=== PATIENT | male | born 1960 | race Caucasian/White ===

== ENCOUNTER 2020-03-03 23:02 | Emergency (ER) | payer OTHER, BC ==
[~2020-03-03] VITALS: Ht 177.8 cm; Wt 83.9 kg
[2020-03-04 01:09] VITALS: BP 125/89
== END 2020-03-04 01:10 | disposition home or self-care (01) ==
LOC: ER 23:02
DX: S01.81XA Laceration without foreign body of other part of head, initial encounter (principal); F17.210 Nicotine dependence, cigarettes, uncomplicated; W22.01XA Walked into wall, initial encounter; Y93.89 Activity, other specified; Y92.89 Other specified places as the place of occurrence of the external cause; Y99.8 Other external cause status

== ENCOUNTER → 2021-07-30 | Outpatient (CLI) | payer OTHER, BC ==
[~2021-07-30] MED LIST: ASA81BEC PO; CYANOCOBAL1000 MCG/1 IM; DAILY VITE1 EAC1 PO; LEVOTHYROXINE50 MC1 PO; OSTEO BI-FLEX1 EAC1 PO; VITAMIN C1000 MG PO
== END ==
LOC: LAB 07:25
PROVIDERS: ATTEND Student in an Organized Health Care Education/Training Program
DX: Z01.812 Encounter for preprocedural laboratory examination (principal); Z20.822 Contact with and (suspected) exposure to COVID-19

== ENCOUNTER → 2021-08-01 | Outpatient (CLI) | payer OTHER, BC ==
[~2021-08-01] VITALS: Ht 177.8 cm; Wt 83.9 kg
--- NOTE | 2021-08-02 16:41 | P ---
[facility] [place] [address] PROCEDURE REPORT Name: GABBIE ZHANG Room #: REG Rafiq Enriquez#: [id number] Admission: 08/01/21 Attend Phys: Stephen Diaz Discharge: Date of : 62 Report #: [id number] THIS REPORT FOR: cc: Dave Swartz MD, Neal A. MD McElhinney, Christian C. MD ~ cc: Dave Swartz MD DATE OF SERVICE: 08/01/2021 PROCEDURE PERFORMED: Colonoscopy with biopsies. HISTORY OF PRESENT ILLNESS: The patient is a 61-year-old male with a history of colon polyps, last colonoscopy 5 years ago. He denies any symptoms at this time. No family history of colon cancer. DESCRIPTION OF PROCEDURE: The risks and benefits of the procedure were explained to the patient, those risks including but not limited to bleeding, perforation and the risk of sedation. He understood these risks and gave informed consent. Sedation was given using propofol per anesthesia. Next, a digital rectal exam was initially performed, which was normal. Next, using a standard Olympus colonoscope, the scope was placed in the patient's anus and advanced under direct vision to the cecum. The overall prep was good. In the cecum, there were two 3-4 mm sessile polyps, both removed with cold forceps, otherwise normal. The ileocecal valve was normal. The ascending, transverse and descending colon were normal. A few small scattered diverticula were noted in the sigmoid colon. No evidence of inflammation, otherwise normal. The rectal mucosa was normal. On retroflexion, no abnormalities were noted. The scope was then withdrawn and the procedure terminated. The patient tolerated the procedure well. IMPRESSION: 1. Small colonic polyps. 2. Sigmoid diverticulosis. 3. Otherwise, normal colonoscopy. RECOMMENDATIONS: 1. Await biopsy results. 2. If polyps are hyperplastic, repeat in 10 years; if adenomatous polyps, repeat in [address] [address] PROCEDURE REPORT Name: GABBIE ZHANG Room #: REG Rafiq Enriquez#: [id number] Admission: 08/01/21 Attend Phys: Stephen Diaz Discharge: Date of : 62 Report #: [id number] Thank you for allowing me to participate in his care. <ELECTRONICALLY SIGNED> By: Stephen Ryan MD 08/02/21 1641 1110 02 Stephen Ryan MD /nt
--- NOTE | 2021-08-06 12:06 | PATH ---
[facility] [place] [place] [address] [place] [address] PATHOLOGY RPT PROCEDURE Name: GABBIE ZHANG Room #: REG [facility] Natacha.#: [id number] Admission: 08/01/21 Date of : 62 Discharge: Report #: [id number] Path Case #: [id number] [facility] Accession Number: [id number] . 01 Material submitted: . cecum - CECAL POLYP . 01 Clinical history: . COLONOSCOPY HX OF POLYPS . 02 Diagnosis: Polyp, cecal polyp, endoscopic biopsy: - Tubular adenoma. - Negative for high grade dysplasia. . (IUV:mml; 08/03/2021) [facility] 08/03/2021 1256 Local . 02 Electronically signed: . Ximena Chavez MD, Pathologist NPI- [id number] . 01 Gross description: . The specimen is received in formalin, labeled "Britni, Gabbie, cecal polyp". Received are 5 segments of pale brown tissue ranging in size from 0.3 to 0.4 cm in maximum dimensions. The specimen is submitted entirely in cassette A1.([facility]; 08/02/2021) [facility] [place]/[facility] [place] 08/02/2021 1545 Local . 02 Pathologist provided ICD-10: D12.0 . 02 CPT . 528707 Specimen Comment: A courtesy copy of this report has been sent to [phone], [phone] Specimen Comment: [id number] Specimen Comment: Report sent to / DR BROWNLEE Specimen Comment: A duplicate report has been generated due to demographic updates. Performed at: 01 [place] [id number] [id number] MD Vincent Haskins MD Phone: [phone] Performed at: 02 [facility] [address] [place] [address] PATHOLOGY RPT PROCEDURE Name: GABBIE ZHANG Room #: REG MICHAEL Enriquez#: [id number] Admission: 08/01/21 Date of : 62 Discharge: Report #: [id number] Path Case #: [id number] [address] [place] [id number] MD Ximena Chavez MD Phone: [phone]
== END | disposition home or self-care (01) ==
LOC: GI 09:38
PROVIDERS: ATTEND Specialist
DX: Z12.11 Encounter for screening for malignant neoplasm of colon (principal); Z86.010 Personal history of colon polyps; D12.0 Benign neoplasm of cecum; K57.30 Diverticulosis of large intestine without perforation or abscess without bleeding; E03.9 Hypothyroidism, unspecified; Z98.890 Other specified postprocedural states; Z79.899 Other long term (current) drug therapy; Z87.891 Personal history of nicotine dependence; Z86.73 Personal history of transient ischemic attack (TIA), and cerebral infarction without residual deficits; Z79.82 Long term (current) use of aspirin
CPT/HCPCS: 62110; 62900